=== PATIENT | male | born 1960 | race American Indian/Alaskan Native ===

== ENCOUNTER 2018-07-03 19:32 | Observation (INO) | payer BC ==
[2018-07-03] MEDS ORDERED: Sodium Chloride 0.9% 1,000 ML IV STA (20:07)
--- NOTE | 2018-07-03 20:13 | ED PDOC ---
Syncope/Near Syncope/Dizziness Time Seen by Provider: 07/03/18 19:56 Chief Complaint (Nursing): Syncope Chief Complaint (Provider): Syncope History Per: Patient History/Exam Limitations: no limitations Onset/Duration Of Symptoms: Hrs Number Of Syncopal Episodes: 1 Activity At Onset Of Symptoms: Standing Fall Associated With With Symptoms: Yes Additional Complaint(s): 57 y/o male presents to the ED after syncopal episode prior to arrival. Patient states he was watching football and when he bent over he felt a spasm-like feeling in the back of his neck. Afterwards, he stood up and immediately felt very light headed and fell to the floor. Patient states that the next thing he knew he was on the floor. He was alone when he fell and afterwards felt a little unbalance was able to walk and ultimately call his ex- to bring him to ED. Patient reports that he knocked out his false teeth as well as 1 real tooth. S janet the incident he has been feeling numbness to his arms and shoulders bilaterally. He also reports soreness to his left knee, arms, and shoulder. Patient denies headache as well as taking any medications or other medical complaints. Patient states he drinks alcohol but denies having any today. Past Medical History Reviewed: Historical Data, Nursing Documentation, Vital Signs Vital Signs: Last Vital Signs Temp 98.8 F 07/03/18 19:42 Pulse 94 H 07/03/18 19:42 Resp 18 07/03/18 19:42 BP 184/78 H 07/03/18 19:42 Pulse Ox 99 07/03/18 19:42 - Medical History PMH: Sleep Apnea - Surgical History Surgical History: No Surg Hx - Family History Family History: States: Unknown Family Hx - Social History Current smoker - smoking cessation education provided: Yes Alcohol: Social - Allergies Allergies/Adverse Reactions: Allergies Allergy/AdvReac Type Severity Reaction Status Date / Time No Known Allergies Allergy Verified 07/03/18 19:42 Review of Systems ROS Statement: Except As Marked, All Systems Reviewed And Found Negative Musculoskeletal: Positive for: Shoulder Pain, Arm Pain Neurological: Positive for: Numbness, Dizziness, Other (Syncope). Negative for: Weakness, Headache Physical Exam - Reviewed Nursing Documentation Reviewed: Yes - Physical Exam Appears: Positive for: Well, Non-toxic, No Acute Distress Head Exam: Positive for: ATRAUMATIC, NORMAL INSPECTION, NORMOCEPHALIC Skin: Positive for: Normal Color, Warm, DRY Eye Exam: Positive for: EOMI, Normal appearance, PERRL ENT: Positive for: Other (Avulsed tooth #9) Neck: Positive for: Normal, Painless ROM Cardiovascular/Chest: Positive for: Tachycardia, Irregularly Irregular Respiratory: Positive for: CNT, Normal Breath Sounds Gastrointestinal/Abdominal: Positive for: Normal Exam, Soft Back: Positive for: Normal Inspection Extremity: Positive for: Normal ROM Neurologic/Psych: Positive for: Alert, Oriented, Other (Stroke scale 0). Negative for: Motor/Sensory Deficits - Laboratory Results Result Diagrams: 07/03/18 20:10 07/03/18 20:10 - ECG ECG Rhythm: Positive for: Normal ST Segment, Atrial Fibrillation, Ventricular Tachycardia (RVR). Negative for: ST/T Changes Interpretation Of ECG: AFib at 122 bpm with RVR and no ST/T changes Rate: 122 O2 Sat by Pulse Oximetry: 99 (RA) Medical Decision Making Medical Decision Making: Time: 20:05 Initial Impression: syncope, new onset RVR Initial Plan: * CT Head * EKG * CMP * TSH * Troponin * CBC w/ diff * PTT * Prothrombin * CXR * IV Fluids * UA CT Head 21:10 FINDINGS: BRAIN No acute intraparenchymal hemorrhage. No mass lesion. No CT evidence for acute territorial infarct. No midline shift or extra-axial collections. VENTRICLES: No hydrocephalus. ORBITS: The orbits are unremarkable. SINUSES AND MASTOIDS: bilateral ethmoid sinusitis. Wax is present in the left external auditory canal. The paranasal sinuses and mastoid air cells are clear. BONES: No fracture. SOFT TISSUES: Unremarkable. IMPRESSION: No acute intracranial abnormality. 22:00 Patient care endorsed to Dr. Rivera pending PE studies. Scribe Attestation: Documented by Jordan Hill acting as a scribe for Cecy Pate MD. Provider Scribe Attestation: All medical record entries made by the Scribe were at my direction and personally dictated by me. I have reviewed the chart and agree that the record accurately reflects my personal performance of the history, physical exam, medical decision making, and the department course for this patient. I have also personally directed, reviewed, and agree with the discharge instructions and dis position. Disposition - Disposition Forms: [employer] (Persian)
[2018-07-03 20:58] LABS: BASO # 0.1 K/uL (0.0-0.2); BASO % 0.5 % (0.0-2.0); EOS # 0.3 K/uL (0.0-0.7); EOS % 2.7 % (0.0-4.0); LYMPH # 2.5 K/uL (1.0-4.3); LYMPH % 24.1 % (20.0-40.0); MEAN CELL VOLUME 85.3 fl (80.0-94.0); MEAN CORPUSCULAR HEMOGLOBIN 28.3 pg (27.0-31.0); MEAN CORPUSCULAR HGB CONC 33.1 g/dL (33.0-37.0); MEAN PLATELET VOLUME 8.3 fl (7.2-11.7); MONO % 9.2 % (0.0-10.0); NEUT # 6.6 K/uL (1.8-7.0); NEUT % 63.5 % (50.0-75.0); RBC 5.65 Mil/uL (4.40-5.90); RED CELL DISTRIBUTION WIDTH 15.1 % (11.5-14.5); WHITE BLOOD COUNT 10.4 K/uL (4.8-10.8)
[2018-07-03 21:21] LABS: URINE BILIRUBIN NEGATIVE (NEGATIVE); URINE BLOOD SMALL (NEGATIVE); URINE CLARITY CLEAR (Clear); URINE COLOR YELLOW (YELLOW); URINE GLUCOSE (UA) NEG (NEGATIVE); URINE LEUKOCYTE ESTERASE NEG Leu/uL (Negative); URINE PROTEIN 30 mg/dL (NEGATIVE); URINE UROBILINOGEN 0.2-1.0 mg/dL (0.2-1.0)
[2018-07-03 21:23] LABS: ALB/GLOB RATIO 1.3 (1.0-2.1); ALBUMIN 4.3 g/dL (3.5-5.0); ALT/SGPT 42 U/L (21-72); AST/SGOT 43 U/L (17-59); BLOOD UREA NITROGEN 17 mg/dl (9-20); CALCIUM 9.2 mg/dL (8.4-10.2); GFR NON-AFRICAN AMERICAN > 60
[2018-07-03 21:24] LABS: INR 0.9; PROTHROMBIN TIME 10.6 Seconds (9.8-13.1)
[2018-07-03 21:27] LABS: PARTIAL THROMBOPLASTIN TIME 31.1 Seconds (25.6-37.1)
[2018-07-03] MEDS ORDERED: Iodixanol 320 MG/ML 100 ML BOTTLE IV ONE (22:13)
[2018-07-03] MEDS ORDERED: Sodium Chloride 0.9% 50 ML IV ONE (22:13)
--- NOTE | 2018-07-03 23:00 | ED PDOC ---
- Laboratory Results Result Diagrams: 07/04/18 04:25 07/04/18 04:25 Lab Results: PT 10.6 Seconds (9.8-13.1) 07/03/18 20:10 INR 0.9 07/03/18 20:10 APTT 31.1 Seconds (25.6-37.1) 07/03/18 20:10 D-Dimer, Quantitative 585 ng/mlDDU (0-230) H 07/03/18 21:29 Troponin I < 0.0120 ng/mL (0.00-0.120) 07/03/18 20:10 Total Bilirubin 0.5 mg/dl (0.2-1.3) 07/03/18 20:10 AST 43 U/L (17-59) 07/03/18 20:10 ALT 42 U/L (21-72) 07/03/18 20:10 Alkaline Phosphatase 106 U/L (38-126) 07/03/18 20:10 Total Protein 7.6 G/DL (6.3-8.2) 07/03/18 20:10 Albumin 4.3 g/dL (3.5-5.0) 07/03/18 20:10 Globulin 3.3 gm/dL (2.2-3.9) 07/03/18 20:10 Albumin/Globulin Ratio 1.3 (1.0-2.1) 07/03/18 20:10 Urine Color Yellow (YELLOW) 07/03/18 20:10 Urine Clarity Clear (Clear) 07/03/18 20:10 Urine pH 6.0 (5.0-8.0) 07/03/18 20:10 Ur Specific [place] 1.013 (1.003-1.030) 07/03/18 20:10 Urine Protein 30 mg/dL (NEGATIVE) 07/03/18 20:10 Urine Glucose (UA) Neg mg/dL (NEGATIVE) 07/03/18 20:10 Urine Ketones Negative mg/dL (NEGATIVE) 07/03/18 20:10 Urine Blood Small (NEGATIVE) 07/03/18 20:10 Urine Nitrate Negative (NEGATIVE) 07/03/18 20:10 Urine Bilirubin Negative (NEGATIVE) 07/03/18 20:10 Urine Urobilinogen 0.2-1.0 mg/dL (0.2-1.0) 07/03/18 20:10 Ur Leukocyte Esterase Neg Thad/uL (Negative) 07/03/18 20:10 Urine RBC (Auto) 9 /hpf (0-3) H 07/03/18 20:10 Urine Microscopic WBC 1 /hpf (0-5) 07/03/18 20:10 - ECG O2 Sat by Pulse Oximetry: 97 (RA) Pulse Ox Interpretation: Normal Medical Decision Making Medical Decision Making: Time: 22:00 Patient care endorsed from Dr. Pate to provider pending PE studies. 23:09 FINDINGS: PULMONARY ARTERIES No evidence of central or segmental pulmonary embolism is seen. AORTA There is no evidence for aneurysm or dissection of the thoracic aorta. LUNGS The lungs appear clear. PLEURAL SPACES No evidence of pneumothorax. No pleural effusion. HEART Normal heart size. No significant pericardial effusion. LYMPH NODES No lymphadenopathy is evident. BONES No focal osseous abnormality or acute fracture. UPPER ABDOMEN Images of the upper abdomen are unremarkable. IMPRESSION: Unremarkable pulmonary embolism protocol CTA of the chest. 00:12 Spoke to hospitalist, Dr. Starkey who accepted patient for admission. Diagnoses are syncope and atrial fibrillation. Scribe Attestation: Documented by Jordan Hill acting as a scribe for Arnel Rivera MD. Provider Scribe Attestation: All medical record entries made by the Scribe were at my direction and pers onally dictated by me. I have reviewed the chart and agree that the record accurately reflects my personal performance of the history, physical exam, medical decision making, and the department course for this patient. I have also personally directed, reviewed, and agree with the discharge instructions and disposition. Disposition - Clinical Impression Clinical Impression: Syncope - POA Present On Arrival: None - Disposition Disposition: Admitted as In-Patient Disposition Time: 00:14 Condition: STABLE
--- NOTE | 2018-07-04 01:08 | CP.PCM.HP ---
<Sukumar Foreman - Last Filed: 07/04/18 01:54> History of Present Illness - History of Present Illness History of Present Illness: 57 y/o M with a PMHx of SEB presented to ED due to syncopal episode. Pt explains he was at the kitchen, fixing his lunch for work, when he felt soreness on his posterior neck and dizzy (lightheaded), then passed out, fell forward, hitting and damaging his upper lip, and displacing his frontal upper teeth. Pt reports LOC for <1min, he was able to stand up with a little balance difficulty and check the football game on TV and the match time only progressed 1 minute. Pt lives alone and had to call ex- for help. No recent illness. No similar episodes. At this moment, pt complains of neck and bilateral arms soreness that improved after PO Tylenol. Pt denies headache, fever, chills, nasal congestion, runny nose, sore throat, cough, chest pain, SOB, palpitations, nausea, vomiting, abdominal pain, diarrhea, [id number], bitten tongue, loss of bladder control or generalized weakness. No recent meds use, no alcohol intake in the last 8 days. PCP: Dr Beasley. (Pt has not seen PCP in over a year) NKDA Medications: None -PMHx: Obstructive Sleep Apnea, uses CPAP to sleep. -PSHx: denied -FHx: Father due to prostate cancer at older age. Mother is healthy. -SHx: Tobacco for >40 years,1 pack last fro 3-4 days. Alcohol occasional, 1-2x per month. No rec drug use. Lives alone. At ED: --Vital signs remarkable for elevated HR. --EKG with A-Fib with RVR. --CBC, CMP and coag profile were unremarkable. --D-dimer 585-elevated. --Serum troponin and TSH were WNL --CT Angio of chest: unremarkable PE protocol. --Head CT: no acute intra-cranial abnormality. --Unremarkable CXR, read by me. --IV NSS bolus, IV Cardiazem and PO Tylenol were administered. Present on Admission - Present on Admission Any Indicators Present on Admission: No History of DVT/PE: No History of Uncontrolled Diabetes: No Urinary Catheter: No Review of Systems - Constitutional Constitutional: absent: Chills, Fever, Night Sweats - EENT Eyes: absent: Change in Vision Nose/Mouth/Throat: Lip Swelling, Mouth Lesions. absent: Epistaxis, Nasal Congestion - Cardiovascular Cardiovascular: absent: Chest Pain, Dyspnea, Orthopnea, Palpitations - Respiratory Respiratory: absent: Cough, Dyspnea, Hemoptysis, Wheezing - Gastrointestinal Gastrointestinal: absent: Abdominal Pain, Belching, Hematochezia, Nausea, Vomiting Past Patient History - Past Social History Alcohol: Social - PULMONARY Hx Sleep Apnea: Yes - PSYCHIATRIC Hx Substance Use: No - SURGICAL HISTORY Hx Musculoskeletal Surgery: Yes Meds Allergies/Adverse Reactions: Allergies Allergy/AdvReac Type Severity Reaction Status Date / Time No Known Allergies Allergy Verified 07/03/18 19:42 Physical Exam - Constitutional Appears: Well, No Acute Distress - Head Exam Head Exam: NORMAL INSPECTION - Eye Exam Eye Exam: EOMI, Normal appearance - ENT Exam ENT Exam: Mucous Membranes Moist Additional comments: Swollen upper lip, erythematous frontal upper gingica with traces of bleeding. No active bleeding. - Neck Exam Neck exam: Positive for: Full Rom, Normal Inspection. Negative for: Lymphadenopathy, Meningismus, Tenderness - Respiratory Exam Respiratory Exam: NORMAL BREATHING PATTERN. absent: Accessory Muscle Use, Chest Wall Tenderness, Wheezes - Cardiovascular Exam Cardiovascular Exam: Tachycardia, Irregular Rhythm, +S1, +S2 - GI/Abdominal Exam GI & Abdominal Exam: Soft. absent: Distended, Rebound, Rigid, Tenderness - Extremities Exam Extremities exam: Positive for: full ROM. Negative for: calf tenderness, joint swelling, pedal edema, tenderness - Neurological Exam Neurological exam: Alert, Oriented x3 - Psychiatric Exam Psychiatric exam: Normal Affect, Normal Mood Results - Vital Signs Recent Vital Signs: Last Vital Signs Temp 98.8 F 07/03/18 19:42 Pulse 93 H 07/04/18 00:29 Resp 18 07/04/18 00:29 BP 148/93 H 07/04/18 00:29 Pulse Ox 97 07/04/18 00:29 - Labs Result Diagrams: 07/03/18 20:10 07/03/18 20:10 Labs: Laboratory Results - last 24 hr 07/03/18 07/03/18 07/03/18 20:10 20:10 20:10 WBC 10.4 RBC 5.65 Hgb 16.0 Hct 48.2 MCV 85.3 MCH 28.3 MCHC 33.1 RDW 15.1 H Plt Count 226 MPV 8.3 Neut % (Auto) 63.5 Lymph % (Auto) 24.1 [place] % (Auto) 9.2 Eos % (Auto) 2.7 Baso % (Auto) 0.5 Neut # (Auto) 6.6 Lymph # (Auto) 2.5 [place] # (Auto) 1.0 H Eos # (Auto) 0.3 Baso # (Auto) 0.1 PT 10.6 INR 0.9 APTT 31.1 D-Dimer, Quantitative Sodium 136 Potassium 4.1 Chloride 101 Carbon Dioxide 25 Anion Gap 14 BUN 17 Creatinine 1.1 Est GFR ( Amer) > 60 Est GFR (Non-Af Amer) > 60 Random Glucose 105 Calcium 9.2 Total Bilirubin 0.5 AST 43 ALT 42 Alkaline Phosphatase 106 Troponin I < 0.0120 Total Protein 7.6 Albumin 4.3 Globulin 3.3 Albumin/Globulin Ratio 1.3 TSH 3rd Generation 1.95 Urine Color Urine Clarity Urine pH Ur Specific [place] Urine Protein Urine Glucose (UA) Urine Ketones Urine Blood Urine Nitrate Urine Bilirubin Urine Urobilinogen Ur Leukocyte Esterase Urine RBC (Auto) Urine Microscopic WBC 07/03/18 07/03/18 20:10 21:29 WBC RBC Hgb Hct MCV MCH MCHC RDW Plt Count MPV Neut % (Auto) Lymph % (Auto) [place] % (Auto) Eos % (Auto) Baso % (Auto) Neut # (Auto) Lymph # (Auto) [place] # (Auto) Eos # (Auto) Baso # (Auto) PT INR APTT D-Dimer, Quantitative 585 H Sodium Potassium Chloride Carbon Dioxide Anion Gap BUN Creatinine Est GFR ( Amer) Est GFR (Non-Af Amer) Random Glucose Calcium Total Bilirubin AST ALT Alkaline Phosphatase Troponin I Total Protein Albumin Globulin Albumin/Globulin Ratio TSH 3rd Generation Urine Color Yellow Urine Clarity Clear Urine pH 6.0 Ur Specific [place] 1.013 Urine Protein 30 Urine Glucose (UA) Neg Urine Ketones Negative Urine Blood Small Urine Nitrate Negative Urine Bilirubin Negative Urine Urobilinogen 0.2-1.0 Ur Leukocyte Esterase Neg Urine RBC (Auto) 9 H Urine Microscopic WBC 1 Assessment & Plan - Assessment and Plan (Free Text) Assessment: 57 y/o M with a PMHx of SEB was admitted for evaluation and management of syncopal episode and new onset of Atrial Fibrillation. --CT Angio of chest: unremarkable PE protocol. --Head CT: no acute intra-cranial abnormality. --TSH wnl, No anemia on CBC, no electrolyte imbalance. PLAN: >Syncope --New, tachycardic. --Likely cardiogenic due to A-Fib --Cardiology consult, Dr Crawford. --Repeat serum troponin --Echocardiogram ordered --Prolactin and CPK for eval of possible seizure. --Orthostatic BP ordered. --F/U AM labs: CBC, CMP, lipid panel, HbA1c, prolactin and CPK. >New Onset Atrial Fibrillation --S/P Cardiazem at ED --Continous cardiac monitoring --Repeat EKG in the morning. --Echocardiogram ordered --Cardiology consult, Dr Crawford. --CHA2DS?2-VASc Score: 0 --Aspirin 81mg PO daily. --Heart Healthy Diet, decaf. >Upper lip pain/gingival pain/Bilateral upper arm sore pain --S/P fall and syncope --Pain management: Acetaminophen and Ibuprofen. --F/U symptoms: Considering CT cervical spine. --Will need dentist evaluation as outpatient. >Obstructive Sleep Apnea --Pt may use his own CPAP >DVT Prophylaxis --SCD's --Lovenox 40mg SC Case discussed with Dr Starkey, hospitalist. GTolentino PGY-2 - Date & Time Date: 07/04/18 Time: 01:45 <Olvin Starkey - Last Filed: 07/04/18 05:06> Results - Vital Signs Recent Vital Signs: Last Vital Signs Temp 98 F 07/04/18 02:02 Pulse 95 H 07/04/18 02:02 Resp 18 07/04/18 02:02 BP 155/83 H 07/04/18 02:02 Pulse Ox 97 07/04/18 02:02 - Labs Result Diagrams: 07/03/18 20:10 07/03/18 20:10 Labs: Laboratory Results - last 24 hr 07/03/18 07/03/18 07/03/18 20:10 20:10 20:10 WBC 10.4 RBC 5.65 Hgb 16.0 Hct 48.2 MCV 85.3 MCH 28.3 MCHC 33.1 RDW 15.1 H Plt Count 226 MPV 8.3 Neut % (Auto) 63.5 Lymph % (Auto) 24.1 [place] % (Auto) 9.2 Eos % (Auto) 2.7 Baso % (Auto) 0.5 Neut # (Auto) 6.6 Lymph # (Auto) 2.5 [place] # (Auto) 1.0 H Eos # (Auto) 0.3 Baso # (Auto) 0.1 PT 10.6 INR 0.9 APTT 31.1 D-Dimer, Quantitative Sodium 136 Potassium 4.1 Chloride 101 Carbon Dioxide 25 Anion Gap 14 BUN 17 Creatinine 1.1 Est GFR ( Amer) > 60 Est GFR (Non-Af Amer) > 60 Random Glucose 105 Calcium 9.2 Total Bilirubin 0.5 AST 43 ALT 42 Alkaline Phosphatase 106 Troponin I < 0.0120 Total Protein 7.6 Albumin 4.3 Globulin 3.3 Albumin/Globulin Ratio 1.3 TSH 3rd Generation 1.95 Urine Color Urine Clarity Urine pH Ur Specific [place] Urine Protein Urine Glucose (UA) Urine Ketones Urine Blood Urine Nitrate Urine Bilirubin Urine Urobilinogen Ur Leukocyte Esterase Urine RBC (Auto) Urine Microscopic WBC 07/03/18 07/03/18 07/04/18 20:10 21:29 02:20 WBC RBC Hgb Hct MCV MCH MCHC RDW Plt Count MPV Neut % (Auto) Lymph % (Auto) [place] % (Auto) Eos % (Auto) Baso % (Auto) Neut # (Auto) Lymph # (Auto) [place] # (Auto) Eos # (Auto) Baso # (Auto) PT INR APTT D-Dimer, Quantitative 585 H Sodium Potassium Chloride Carbon Dioxide Anion Gap BUN Creatinine Est GFR ( Amer) Est GFR (Non-Af Amer) Random Glucose Calcium Total Bilirubin AST ALT Alkaline Phosphatase Troponin I < 0.0120 Total Protein Albumin Globulin Albumin/Globulin Ratio TSH 3rd Generation Urine Color Yellow Urine Clarity Clear Urine pH 6.0 Ur Specific [place] 1.013 Urine Protein 30 Urine Glucose (UA) Neg Urine Ketones Negative Urine Blood Small Urine Nitrate Negative Urine Bilirubin Negative Urine Urobilinogen 0.2-1.0 Ur Leukocyte Esterase Neg Urine RBC (Auto) 9 H Urine Microscopic WBC 1 Attending/Attestation - Attestation I have personally seen and examined this patient.: Yes I have fully participated in the care of the patient.: Yes I have reviewed all pertinent clinical information: Yes Notes (Text): 07/04/18 04:52 I saw, examined and discussed this patient with . I agree with the Assessment and plan outlined above. We will follow serial Troponin, EKG and ECHO for wall motion, Prolactin, CPK to r/o Rhabdomyolisis. Cardiac monitoring for the A Fib and the Syncope. Neuro david cks. No Cervical Spine CT scan at present as the patient has no neck pain nor discomfort at this time. Consult Cardiology. Cardizem Oral for Rate control of New unset A Fib. Aspirin as the [id number] is 0. - Follow elevated Blood pressure Olvin Starkey MD
[2018-07-04 05:47] LABS: BASO # 0.1 K/uL (0.0-0.2); BASO % 0.8 % (0.0-2.0); EOS # 0.3 K/uL (0.0-0.7); EOS % 2.7 % (0.0-4.0); HEMOGLOBIN 15.4 g/dL (12.0-18.0); LYMPH % 26.4 % (20.0-40.0); MEAN CELL VOLUME 86.6 fl (80.0-94.0); MEAN CORPUSCULAR HGB CONC 32.4 g/dL (33.0-37.0); MEAN PLATELET VOLUME 8.3 fl (7.2-11.7); MONO # 1.1 K/uL (0.0-0.8); MONO % 9.6 % (0.0-10.0); NEUT # 6.8 K/uL (1.8-7.0); NEUT % 60.5 % (50.0-75.0); NRBC % 0.2 % (0.0-0.0); RBC 5.51 Mil/uL (4.40-5.90); RED CELL DISTRIBUTION WIDTH 14.9 % (11.5-14.5); WHITE BLOOD COUNT 11.3 K/uL (4.8-10.8)
[2018-07-04 06:02] LABS: BLOOD UREA NITROGEN 13 mg/dl (9-20); CALCIUM 8.7 mg/dL (8.4-10.2); GFR NON-AFRICAN AMERICAN > 60; HDL CHOLESTEROL 59 MG/DL (30-70); LDL CHOLESTEROL 115 mg/dL (0-129)
--- NOTE | 2018-07-04 08:43 | CT ---
Date of service: 07/03/2018 PROCEDURE: CT HEAD WITHOUT CONTRAST. HISTORY: Vertigo COMPARISON: None available. TECHNIQUE: Axial computed tomography images were obtained through the head/brain without intravenous contrast. Radiation dose: Total exam DLP = 731.55 mGy-cm. This CT exam was performed using one or more of the following dose reduction techniques: Automated exposure control, adjustment of the mA and/or kV according to patient size, and/or use of iterative reconstruction technique. FINDINGS: HEMORRHAGE: No intracranial hemorrhage. BRAIN: No mass effect or edema. No atrophy or chronic microvascular ischemic changes. VENTRICLES: Unremarkable. No hydrocephalus. CALVARIUM: Unremarkable. PARANASAL SINUSES: Unremarkable as visualized. No significant inflammatory changes. MASTOID AIR CELLS: Unremarkable as visualized. No inflammatory changes. OTHER FINDINGS: None. IMPRESSION: No evidence of acute intracranial hemorrhage mass effect or midline shift . Preliminary report contains concordant findings was submitted by [facility].
[2018-07-04] MEDS ORDERED: Enoxaparin 40 mg Syringe SC SCH (09:00)
--- NOTE | 2018-07-04 10:04 | CT ---
Date of service: 07/03/2018 PROCEDURE: CT Chest with contrast (Pulmonary Angiogram) HISTORY: Syncope COMPARISON: None available. TECHNIQUE: Axial computed tomography images were obtained of the chest in the pulmonary arterial phase of enhancement. Coronal and sagittal reformatted images were created and reviewed. Intravenous contrast dose: 70 mL of Visipaque 320 intravenously Radiation dose: Total exam DLP = 369.32 mGy-cm. This CT exam was performed using one or more of the following dose reduction techniques: Automated exposure control, adjustment of the mA and/or kV according to patient size, and/or use of iterative reconstruction technique. FINDINGS: PULMONARY ARTERIES: No evidence of filling defect to suggest acute pulmonary embolus. No pulmonary embolism. AORTA: No acute findings. No thoracic aortic aneurysm. No aortic atherosclerotic calcification or mural plaque present. LUNGS: Unremarkable. No nodule, mass or pulmonary consolidation. PLEURAL SPACES: Unremarkable. No effusion or pneumothorax. HEART: Unremarkable. No cardiomegaly. No significant pericardial effusion. LYMPH NODES: No lymphadenopathy. BONES, CHEST WALL: Unremarkable. No fracture or destructive lesion OTHER FINDINGS: Unremarkable. IMPRESSION: No CTA evidence of acute pulmonary embolus. No evidence of acute pulmonary disease. Preliminary report contains concordant findings was submitted by [facility].
--- NOTE | 2018-07-04 10:06 | CARD ---
APPROVED REPORT Date of service: 07/03/2018 EKG Measurement Heart [id number] <Conclusion> Atrial fibrillation with rapid ventricular response Abnormal ECG
[2018-07-04 12:29] LABS: PROLACTIN 16.2 ng/mL (3.7-17.9)
--- NOTE | 2018-07-04 12:36 | CARD ---
APPROVED REPORT Date of service: 07/04/2018 EKG Measurement Heart [id number] <Conclusion> Atrial fibrillation with rapid ventricular response Left axis deviation Possible Septal infarct, age undetermined Abnormal ECG
--- NOTE | 2018-07-04 12:53 | CARD ---
APPROVED REPORT Date of service: 07/04/2018 EXAM: Two-dimensional and M-mode echocardiogram with Doppler and color Doppler. Other Information Quality : GoodRhythm : Atrial Fibrillation INDICATION Atrial Fibrillation Syncope 2D DIMENSIONS IVSd1.25 (0.7-1.1cm)LVDd3.99 (3.9-5.9cm) PWd1.54 (0.7-1.1cm)IVSs1.08 (0.8-1.2cm) LVDs3.48 (2.5-4.0cm)FS (%) 12.8 % PWs1.68 (0.8-1.2cm) M-Mode DIMENSIONS Left Atrium (MM)3.12 (2.5-4.0cm)IVSd1.19 (0.7-1.1cm) Aortic Root2.87 (2.2-3.7cm)LVDd4.44 (4.0-5.6cm) Aortic Cusp Exc.1.96 (1.5-2.0cm)PWd1.27 (0.7-1.1cm) IVSs1.99 cmFS (%) 44 % LVDs2.48 (2.0-3.8cm)PWs1.63 cm Aortic Valve LVOT Peak Zash[place]up51.3cm/sLVOT VTI11.30cm Mitral Valve E/A ratio0.0 TDI E/Lateral E'0.0E/Medial E'0.0 LEFT VENTRICLE The left ventricle is normal size. There is mild concentric left ventricular hypertrophy. The left ventricular systolic function is normal. The estimated ejection fraction is 60-65% No regional wall motion abnormalities noted.. The left ventricular diastolic function cannot be assessed due to underlying atrial fibrillation. No left ventricle thrombus noted on this study. There is no ventricular septal defect visualized. There is no left ventricular aneurysm. There is no mass noted in the left ventricle. RIGHT VENTRICLE The right ventricle is normal size. There is normal right ventricular wall thickness. The right ventricular systolic function is normal. ATRIA The left atrium size is normal. The right atrium size is normal. The interatrial septum is intact with no evidence for an atrial septal defect. AORTIC VALVE The aortic valve is normal in structure. No aortic regurgitation is present. There is no aortic valvular stenosis. There is no aortic valvular vegetation. MITRAL VALVE The mitral valve is normal in structure. There is no evidence of mitral valve prolapse. There is no mitral valve stenosis. There is no mitral valve regurgitation noted. TRICUSPID VALVE The tricuspid valve is normal in structure. There is no tricuspid valve regurgitation noted. There is no tricuspid valve prolapse or vegetation. There is no tricuspid valve stenosis. PULMONIC VALVE The pulmonary valve is normal in structure. There is no pulmonic valvular regurgitation. There is no pulmonic valvular stenosis. GREAT VESSELS The aortic root is normal in size. The ascending aorta is normal in size. The pulmonary artery is normal. The IVC is normal in size and collapses >50% with inspiration. PERICARDIAL EFFUSION There is no pericardial effusion. There is no pleural effusion. <Conclusion> There is mild concentric left ventricular hypertrophy. The estimated ejection fraction is 60-65% The left ventricular diastolic function cannot be assessed due to underlying atrial fibrillation. The left atrium size is normal. There is no tricuspid valve regurgitation noted.
--- NOTE | 2018-07-04 12:57 | RAD ---
Date of service: 07/03/2018 HISTORY: Syncope COMPARISON: No prior. FINDINGS: LUNGS: No active pulmonary disease. PLEURA: No significant pleural effusion identified, no pneumothorax apparent. CARDIOVASCULAR: No atherosclerotic calcification present Normal. OSSEOUS STRUCTURES: No significant abnormalities. VISUALIZED UPPER ABDOMEN: Normal. OTHER FINDINGS: None. IMPRESSION: No active disease.
[2018-07-04] MEDS: Enoxaparin 80 mg Syringe SC SCH ×2 (12:58→21:12)
[2018-07-04 16:34] LABS: BARBITURATES, UR NEGATIVE (NEGATIVE); BENZODIAZEPINES, UR NEGATIVE (NEGATIVE); OPIATES, UR NEGATIVE (NEGATIVE); PHENCYCLIDINE, UR NEGATIVE (NEGATIVE)
--- NOTE | 2018-07-04 17:11 | US ---
Date of service: 07/04/2018 PROCEDURE: Duplex ultrasound of the carotid and vertebral arteries. HISTORY: syncope, rule out carotid artery stenosis COMPARISON: None available. TECHNIQUE: Grayscale and duplex Doppler evaluation of the cervical carotid and vertebral arteries were performed. The common carotid, carotid bifurcations and cervical ICA and proximal ECA were evaluated. The vertebral arteries were evaluated for gross patency and direction. FINDINGS: RIGHT CAROTID ARTERIES: Common Carotid Artery: Maximal flow velocity of 91.2 cm/s. Carotid Bifurcation: Intimal thickening is present Internal Carotid Artery:Heterogeneous plaque formation. Maximal flow velocity of 66.1 cm/s. External Carotid Artery (proximal branches): Maximal flow velocity of 91.4 cm/s. ICA/CCA Ratio: 1.2 LEFT CAROTID ARTERIES: Common Carotid Artery: Maximal flow velocity of 96.8 cm/s. Carotid Bifurcation: Intimal thickening is present Internal Carotid Artery:Heterogeneous plaque formation. Maximal flow velocity of 80.6 cm/s. External Carotid Artery (proximal branches): Maximal flow velocity of 83.8 cm/s. ICA/CCA Ratio: 1.2 VERTEBRAL ARTERIES: Right Vertebral Artery: Patent. Antegrade flow. Left Vertebral Artery: Patent. Antegrade flow. OTHER FINDINGS: Atherosclerotic calcification present. IMPRESSION: Right ICA degree of stenosis: Less than 50% Left ICA degree of stenosis: Less than 50% Reference Internal Carotid Artery (ICA) Peak Systolic Velocity (PSV) for above: 1. Less than 50% stenosis less than 125 cm/s peak systolic velocity 2. 50-69% stenosis 125-230cm/s peak systolic velocity 3. Greater than 70% but less than near occlusion greater than 230 cm/s peak systolic velocity
[2018-07-04] MEDS ORDERED: Gadodiamide 287 MG/ML VIAL (15ML) IV ONE (18:02)
--- NOTE | 2018-07-05 01:01 | CON ---
DATE: 07/04/2018 CARDIOLOGY CONSULTATION REASON FOR CONSULTATION: New-onset atrial fibrillation as well as a syncopal episode. HISTORY OF PRESENT ILLNESS: The patient is a 57-year-old male who has known prior cardiac history, presented because of a fall. The patient stated that as he was watching a football game, and he was bending down to sweep the floor as he stood up, he collapsed on his face and broke four of his front teeth in the upper jaw. The patient did not realize what happened until he woke up on the floor with blood smearing him on the floor. The patient from the game watching timer was able to tell that he was down for a brief time probably a few minutes. The patient denies any urinary incontinence. The patient has no warning sign before his fall. Denies any history of palpitation. The patient works as substance abuse clinician. Denies any history of accidents in the past. SOCIAL HISTORY: The patient is a smoker. . He lives by himself. MEDICATIONS: Cardizem 30 mg p.o. every 6 hours, aspirin 81 mg once a day, therapeutic subcutaneous Lovenox at 80 mg twice a day. REVIEW OF SYSTEMS: No headache, blurry vision, or dizziness as a sign. The patient does not report any palpitation. PHYSICAL EXAMINATION: GENERAL: The patient is a middle-aged male who does not appear to be in any distress. VITAL SIGNS: Blood pressure 132/77, heart rate 78, temperature 98.3, respirations 18. HEENT: The patient is currently undergoing EEG, and his head is wrapped with a bandage over the electrodes. He has loss of the four upper jaw incisors. NECK: No JVD. CHEST: Clear. HEART: S1 and S2 are regular. ABDOMEN: Soft. EXTREMITIES: No edema. LABORATORY DATA: Today's hemoglobin and hematocrit 15.4 and 47.7, white count 11.3, platelet count 224,000. Today's SMA-7: Sodium 133, potassium 4.2, chloride 102, CO2 of 23, glucose 110, BUN 16, creatinine 1. Two sets of troponins are negative. Lipid profile is within normal limits. TSH level is within normal limits. D-dimer is 585. PT, PTT, and INR are within normal limits. Head CT scan without contrast revealed no evidence of acute intracranial hemorrhage to midline shift. Chest x-ray was unremarkable. EKG on admission revealed atrial fibrillation with rapid ventricular response at rate 122. Today's EKG revealed atrial fibrillation with ventricular response at rate 106, left axis deviation, possible septal infarct. Chest CT angio, no CT evidence of acute pulmonary embolus. Echocardiographic study revealed normal ejection fraction, mild concentric LVH. ASSESSMENT: 1. Syncopal episode versus seizures. 2. Atrial fibrillation, most likely new onset. 3. Systolic hypertension. RECOMMENDATIONS: Continue Cardizem 30 mg p.o. every 8 hours, aspirin 81 mg once a day, therapeutic subcutaneous Lovenox at 80 mg twice a day. I will follow up EEG. Obtain EP consult. Marvin Crawford MD
[2018-07-05] MEDS ORDERED: Iodixanol 320 MG/ML 100 ML BOTTLE IV ONE (10:25)
[2018-07-05] MEDS ORDERED: Sodium Chloride 0.9% 50 ML IV ONE (10:25)
[2018-07-05] MEDS: Enoxaparin 80 mg Syringe SC SCH (12:00)
--- NOTE | 2018-07-05 12:50 | MRI ---
Date of service: 07/04/2018 PROCEDURE: MRI BRAIN WITH AND WITHOUT CONTRAST HISTORY: syncopy COMPARISON: None available. TECHNIQUE: Multiplanar, multisequence MR images of the brain were obtained with and without intravenous contrast enhancement. FINDINGS: HEMORRHAGE: None DWI: No evidence of an acute or early subacute infarction. BRAIN PARENCHYMA: Brain parenchyma remarkable for infrequent subcortical long TR hyperintensities identified in the frontal and parietal lobes compatible with limited chronic microangiopathy. No additional signal abnormalities appreciate above or below the tentorium including throughout the brainstem. There is no mass effect. Midline brain anatomy is unremarkable and there is no suspicious extra-axial collection identified. ENHANCEMENT: No abnormal intracranial enhancement. VENTRICLES: Unremarkable. No hydrocephalus. CRANIUM: Unremarkable. ORBITS: Grossly unremarkable. PARANASAL SINUSES/MASTOIDS: Clear VASCULAR SYSTEM: Skull base flow voids intact. OTHER FINDINGS: None . IMPRESSION: Minimal age related neuro degenerative findings, primarily chronic microangiopathy. The remainder the examination is unremarkable. No abnormal intracranial enhancement.
[2018-07-05 16:02] VITALS: BP 146/68; PULSE 65; RESP 17; TEMP 98.1; O2SAT 98
--- NOTE | 2018-07-05 16:19 | CT ---
Date of service: 07/05/2018 PROCEDURE: CT Angiography of the Brain and Neck. HISTORY: syncopy COMPARISON: None available. TECHNIQUE: CT angiogram of the head and neck was performed following intravenous administration of iodinated contrast material captured during the arterial phase of contrast enhancement. Contrast Dose: Visipaque 320, 99 cc Radiation dose: Total exam DLP = 541.47 mGy-cm. This CT exam was performed using one or more of the following dose reduction techniques: Automated exposure control, adjustment of the mA and/or kV according to patient size, and/or use of iterative reconstruction technique. FINDINGS: INTERNAL CEREBRAL ARTERIES: Unremarkable. The skull base, petrous, cavernous and supraclinoid segments are bilaterally widely patent. ANTERIOR CEREBRAL ARTERIES: Unremarkable. A1 and A2 segments are widely patent. Smaller distal branches unremarkable, as visualized. MIDDLE CEREBRAL ARTERIES: Unremarkable. M1 and M2 segments are widely patent. Perisylvian branches grossly symmetric. POSTERIOR CIRCULATION: Basilar Artery: Unremarkable. Distal Vertebral Arteries: Left dominant vertebrobasilar circulation. Posterior Cerebral Arteries: Unremarkable. Posterior Inferior Cerebellar Arteries: Unremarkable. NECK CTA: Common Carotid arteries: The bilateral common carotid appear widely patent from their origins to their bifurcations with no significant stenosis appreciated. No evidence to suggest common carotid artery dissection. A mild amount of plaque identified at the right carotid bulb without significant stenosis resulting nevertheless. Internal Carotid arteries: No significant stenosis is appreciated throughout the cervical internal carotid artery segments bilaterally and there is no evidence of dissection either. External Carotid arteries: Appear unremarkable bilaterally. Vertebral arteries: The bilateral vertebral arteries appear normal in caliber from their origins to their distal cervical segments. No significant stenosis or definite pattern of dissection. ANEURYSM/ VASCULAR MALFORMATIONS: None. OTHER FINDINGS: None. IMPRESSION: CT angiography of the brain and neck fails demonstrate evidence of occlusion or significant stenosis without throughout the intracranial and neck major arterial anatomy. No significant stenosis appreciated related to mild plaque at the right carotid bulb.
--- NOTE | 2018-07-05 17:03 | CP.PCM.DIS ---
<Sanjay Benoit - Last Filed: 07/05/18 16:47> Provider - Provider Date of Admission: 07/04/18 00:14 Attending physician: Olvin Starkey Consults: 07/04/18 00:15 Cardiology Consult Stat Comment: Consulting Provider: Marvin Crawfrod Consulting Physician: Marvin Crawford Reason for Consult: n 07/04/18 14:10 Neurology Consult Routine Comment: Consulting Provider: Braxton Thomas Consulting Physician: Braxton Thomas Reason for Consult: r/o seizure 07/04/18 14:17 Physician Consult Routine Comment: Consulting Provider: Juan Blount Consulting Physician: Juan Blount Reason for Consult: a fib. syncope Time Spent in preparation of Discharge (in minutes): 30 Hospital Course - Lab Results Lab Results: Most Recent Lab Values WBC 11.3 K/uL (4.8-10.8) H 07/04/18 04:25 RBC 5.51 Mil/uL (4.40-5.90) 07/04/18 04:25 Hgb 15.4 g/dL (12.0-18.0) 07/04/18 04:25 Hct 47.7 % (35.0-51.0) 07/04/18 04:25 MCV 86.6 fl (80.0-94.0) 07/04/18 04:25 MCH 28.0 pg (27.0-31.0) 07/04/18 04:25 MCHC 32.4 g/dL (33.0-37.0) L 07/04/18 04:25 RDW 14.9 % (11.5-14.5) H 07/04/18 04:25 Plt Count 224 K/uL (130-400) 07/04/18 04:25 MPV 8.3 fl (7.2-11.7) 07/04/18 04:25 Neut % (Auto) 60.5 % (50.0-75.0) 07/04/18 04:25 Lymph % (Auto) 26.4 % (20.0-40.0) 07/04/18 04:25 Day % (Auto) 9.6 % (0.0-10.0) 07/04/18 04:25 Eos % (Auto) 2.7 % (0.0-4.0) 07/04/18 04:25 Baso % (Auto) 0.8 % (0.0-2.0) 07/04/18 04:25 Neut # (Auto) 6.8 K/uL (1.8-7.0) 07/04/18 04:25 Lymph # (Auto) 3.0 K/uL (1.0-4.3) 07/04/18 04:25 Day # (Auto) 1.1 K/uL (0.0-0.8) H 07/04/18 04:25 Eos # (Auto) 0.3 K/uL (0.0-0.7) 07/04/18 04:25 Baso # (Auto) 0.1 K/uL (0.0-0.2) 07/04/18 04:25 PT 10.6 Seconds (9.8-13.1) 07/03/18 20:10 INR 0.9 07/03/18 20:10 APTT 31.1 Seconds (25.6-37.1) 07/03/18 20:10 D-Dimer, Quantitative 585 ng/mlDDU (0-230) H 07/03/18 21:29 Sodium 133 mmol/l (132-148) 07/04/18 04:25 Potassium 4.2 MMOL/L (3.6-5.0) 07/04/18 04:25 Chloride 102 mmol/L (98-107) 07/04/18 04:25 Carbon Dioxide 23 mmol/L (22-30) 07/04/18 04:25 Anion Gap 12 (10-20) 07/04/18 04:25 BUN 13 mg/dl (9-20) 07/04/18 04:25 Creatinine 1.0 mg/dl (0.8-1.5) 07/04/18 04:25 Est GFR ( Amer) > 60 07/04/18 04:25 Est GFR (Non-Af Amer) > 60 07/04/18 04:25 POC Glucose (mg/dL) 108 mg/dL (65-110) 07/03/18 20:19 Random Glucose 110 mg/dL (75-110) 07/04/18 04:25 Hemoglobin A1c 5.9 % (4.2-6.5) 07/04/18 04:25 Calcium 8.7 mg/dL (8.4-10.2) 07/04/18 04:25 Total Bilirubin 0.5 mg/dl (0.2-1.3) 07/03/18 20:10 AST 43 U/L (17-59) 07/03/18 20:10 ALT 42 U/L (21-72) 07/03/18 20:10 Alkaline Phosphatase 106 U/L (38-126) 07/03/18 20:10 Total Creatine Kinase 710 U/L (55-170) H 07/04/18 04:25 Troponin I < 0.0120 ng/mL (0.00-0.120) 07/04/18 02:20 Total Protein 7.6 G/DL (6.3-8.2) 07/03/18 20:10 Albumin 4.3 g/dL (3.5-5.0) 07/03/18 20:10 Globulin 3.3 gm/dL (2.2-3.9) 07/03/18 20:10 Albumin/Globulin Ratio 1.3 (1.0-2.1) 07/03/18 20:10 Triglycerides 113 mg/DL (0-149) 07/04/18 04:25 Cholesterol 199 mg/dL (0-199) 07/04/18 04:25 LDL Cholesterol Direct 115 mg/dL (0-129) 07/04/18 04:25 HDL Cholesterol 59 MG/DL (30-70) 07/04/18 04:25 TSH 3rd Generation 1.95 mIU/ML (0.46-4.68) 07/03/18 20:10 Prolactin 16.2 ng/mL (3.7-17.9) 07/04/18 04:25 Urine Color Yellow (YELLOW) 07/03/18 20:10 Urine Clarity Clear (Clear) 07/03/18 20:10 Urine pH 6.0 (5.0-8.0) 07/03/18 20:10 Ur Specific Downey 1.013 (1.003-1.030) 07/03/18 20:10 Urine Protein 30 mg/dL (NEGATIVE) 07/03/18 20:10 Urine Glucose (UA) Neg mg/dL (NEGATIVE) 07/03/18 20:10 Urine Ketones Negative mg/dL (NEGATIVE) 07/03/18 20:10 Urine Blood Small (NEGATIVE) 07/03/18 20:10 Urine Nitrate Negative (NEGATIVE) 07/03/18 20:10 Urine Bilirubin Negative (NEGATIVE) 07/03/18 20:10 Urine Urobilinogen 0.2-1.0 mg/dL (0.2-1.0) 07/03/18 20:10 Ur Leukocyte Esterase Neg Thad/uL (Negative) 07/03/18 20:10 Urine RBC (Auto) 9 /hpf (0-3) H 07/03/18 20:10 Urine Microscopic WBC 1 /hpf (0-5) 07/03/18 20:10 Urine Opiates Screen Negative (NEGATIVE) 07/04/18 15:58 Urine Methadone Screen Negative (NEGATIVE) 07/04/18 15:58 Ur Barbiturates Screen Negative (NEGATIVE) 07/04/18 15:58 Ur Phencyclidine Scrn Negative (NEGATIVE) 07/04/18 15:58 Ur Amphetamines Screen Negative (NEGATIVE) 07/04/18 15:58 U Benzodiazepines Scrn Negative (NEGATIVE) 07/04/18 15:58 U Oth Cocaine Metabols Negative (NEGATIVE) 07/04/18 15:58 U Cannabinoids Screen Negative (NEGATIVE) 07/04/18 15:58 Alcohol, Quantitative < 10 mg/dl (0-10) 07/04/18 12:38 - Hospital Course Hospital Course: 57 y/o M with a PMHx of SEB was admitted for evaluation and management of syncopal episode and new onset of Atrial Fibrillation. Patient was put on Lovenox 40mg, Cardizem 30 mg, Aspirin, Ibuprofen and acetaminophen. During his hospital stay patient didn't have any acute events. Patient to be discharged home on Eliquis 10 mg BID PO for 1 week then continue n Eliquis 5 mg PO BID and Nicotine Patches 14 mg/24h. Patient to follow up with Dr. Juan Drake MD for EPS. Assessment: 57 y/o M with a PMHx of SEB was admitted for evaluation and management of syncopal episode and new onset of Atrial Fibrillation. --CT Angio of chest: unremarkable PE protocol. --CTA Head and Neck: No evidence of occlusion or stenosis. No evidence of intracranial stenosis related to Mild R carotid plaque --Head CT: no acute intra-cranial abnormality. --TSH wnl, No anemia on CBC, no electrolyte imbalance. PLAN: >Syncope --New, tachycardic. --Likely cardiogenic due to A-Fib --Cardiology consult, Dr Crawford, Reccs appreciated. --CT Angio of chest: unremarkable PE protocol. --CTA Head and Neck: No evidence of occlusion or stenosis. No evidence of intracranial stenosis related to Mild R carotid plaque --Head CT: no acute intra-cranial abnormality. --TSH wnl, No anemia on CBC, no electrolyte imbalance. --3 Serum troponin are negative. --Echocardiogram; Mild concentric L vent. hypertrophy, EF 60-65%, L atrial fun ction normal. KL vent diastolic function couldn't be assessed due to A-fib. >New Onset Atrial Fibrillation --Discontinue Cardiazem. --EKG; A fib with rapid vent. response, Possible septal infarction and L axis deviation. --Echocardiogram; Mild concentric L vent. hypertrophy, EF 60-65%, L atrial function normal. KL vent diastolic function couldn't be assessed due to A-fib. --Cardiology consult, Dr Crawford. --CHA2DS?2-VASc Score: 0 --Eliquis 10 mg BID PO for 1 week then continue n Eliquis 5 mg PO BID. --Nicotine Patches 14 mg/24h. -- Patient to follow up with Dr. Juan Drake MD for EPS. Discharge Exam - Head Exam Head Exam: NORMAL INSPECTION - Eye Exam Eye Exam: EOMI, Normal appearance, PERRL Pupil Exam: NORMAL ACCOMODATION, PERRL - ENT Exam ENT Exam: Mucous Membranes Moist, Normal Exam - Neck Exam Neck exam: Full Rom - Respiratory Exam Respiratory Exam: Clear to PA & Lateral, NORMAL BREATHING PATTERN, UNREMARKABLE - Cardiovascular Exam Cardiovascular Exam: +S1, +S2 - GI/Abdominal Exam GI & Abdominal Exam: Normal Bowel Sounds, Unremarkable - Extremities Exam Extremities exam: full ROM, normal capillary refill - Back Exam Back exam: NORMAL INSPECTION - Neurological Exam Neurological exam: Alert, Oriented x3 - Psychiatric Exam Psychiatric exam: Normal Affect, Normal Mood - Skin Skin Exam: Dry, Intact, Normal Color, Warm Discharge Plan - Discharge Medications Prescriptions: Apixaban [Eliquis] 5 mg PO BID #60 tablet Nicotine 14 mg/24 hr [Nicoderm CQ] 1 each TD DAILY #14 patch - Follow Up Plan Condition: STABLE Disposition: HOME/ ROUTINE Instructions: Atrial Fibrillation (DC), Syncope (Fainting) (DC) Additional Instructions: appt with PMBrandie leep appt with Dr Jose Alejandro fierro Referrals: Juan Blount MD [Staff Provider] - Raul Beasley MD [Family Provider] - <Linda Carey - Last Filed: 07/05/18 17:23> Provider - Provider Date of Admission: 07/04/18 00:14 Attending physician: Olvin Starkey Consults: 07/04/18 00:15 Cardiology Consult Stat Comment: Consulting Provider: Marvin Crawford Consulting Physician: Marvin Crawford Reason for Consult: n 07/04/18 14:10 Neurology Consult Routine Comment: Consulting Provider: Braxton Thomas Consulting Physician: Braxton Thomas Reason for Consult: r/o seizure 07/04/18 14:17 Physician Consult Routine Comment: Consulting Provider: Juan Blount Consulting Physician: Juan Blount Reason for Consult: a fib. syncope Hospital Course - Lab Results Lab Results: Most Recent Lab Values WBC 11.3 K/uL (4.8-10.8) H 07/04/18 04:25 RBC 5.51 Mil/uL (4.40-5.90) 07/04/18 04:25 Hgb 15.4 g/dL (12.0-18.0) 07/04/18 04:25 Hct 47.7 % (35.0-51.0) 07/04/18 04:25 MCV 86.6 fl (80.0-94.0) 07/04/18 04:25 MCH 28.0 pg (27.0-31.0) 07/04/18 04:25 MCHC 32.4 g/dL (33.0-37.0) L 07/04/18 04:25 RDW 14.9 % (11.5-14.5) H 07/04/18 04:25 Plt Count 224 K/uL (130-400) 07/04/18 04:25 MPV 8.3 fl (7.2-11.7) 07/04/18 04:25 Neut % (Auto) 60.5 % (50.0-75.0) 07/04/18 04:25 Lymph % (Auto) 26.4 % (20.0-40.0) 07/04/18 04:25 Day % (Auto) 9.6 % (0.0-10.0) 07/04/18 04:25 Eos % (Auto) 2.7 % (0.0-4.0) 07/04/18 04:25 Baso % (Auto) 0.8 % (0.0-2.0) 07/04/18 04:25 Neut # (Auto) 6.8 K/uL (1.8-7.0) 07/04/18 04:25 Lymph # (Auto) 3.0 K/uL (1.0-4.3) 07/04/18 04:25 Day # (Auto) 1.1 K/uL (0.0-0.8) H 07/04/18 04:25 Eos # (Auto) 0.3 K/uL (0.0-0.7) 07/04/18 04:25 Baso # (Auto) 0.1 K/uL (0.0-0.2) 07/04/18 04:25 PT 10.6 Seconds (9.8-13.1) 07/03/18 20:10 INR 0.9 07/03/18 20:10 APTT 31.1 Seconds (25.6-37.1) 07/03/18 20:10 D-Dimer, Quantitative 585 ng/mlDDU (0-230) H 07/03/18 21:29 Sodium 133 mmol/l (132-148) 07/04/18 04:25 Potassium 4.2 MMOL/L (3.6-5.0) 07/04/18 04:25 Chloride 102 mmol/L (98-107) 07/04/18 04:25 Carbon Dioxide 23 mmol/L (22-30) 07/04/18 04:25 Anion Gap 12 (10-20) 07/04/18 04:25 BUN 13 mg/dl (9-20) 07/04/18 04:25 Creatinine 1.0 mg/dl (0.8-1.5) 07/04/18 04:25 Est GFR ( Amer) > 60 07/04/18 04:25 Est GFR (Non-Af Amer) > 60 07/04/18 04:25 POC Glucose (mg/dL) 108 mg/dL (65-110) 07/03/18 20:19 Random Glucose 110 mg/dL (75-110) 07/04/18 04:25 Hemoglobin A1c 5.9 % (4.2-6.5) 07/04/18 04:25 Calcium 8.7 mg/dL (8.4-10.2) 07/04/18 04:25 Total Bilirubin 0.5 mg/dl (0.2-1.3) 07/03/18 20:10 AST 43 U/L (17-59) 07/03/18 20:10 ALT 42 U/L (21-72) 07/03/18 20:10 Alkaline Phosphatase 106 U/L (38-126) 07/03/18 20:10 Total Creatine Kinase 710 U/L (55-170) H 07/04/18 04:25 Troponin I < 0.0120 ng/mL (0.00-0.120) 07/04/18 02:20 Total Protein 7.6 G/DL (6.3-8.2) 07/03/18 20:10 Albumin 4.3 g/dL (3.5-5.0) 07/03/18 20:10 Globulin 3.3 gm/dL (2.2-3.9) 07/03/18 20:10 Albumin/Globulin Ratio 1.3 (1.0-2.1) 07/03/18 20:10 Triglycerides 113 mg/DL (0-149) 07/04/18 04:25 Cholesterol 199 mg/dL (0-199) 07/04/18 04:25 LDL Cholesterol Direct 115 mg/dL (0-129) 07/04/18 04:25 HDL Cholesterol 59 MG/DL (30-70) 07/04/18 04:25 TSH 3rd Generation 1.95 mIU/ML (0.46-4.68) 07/03/18 20:10 Prolactin 16.2 ng/mL (3.7-17.9) 07/04/18 04:25 Urine Color Yellow (YELLOW) 07/03/18 20:10 Urine Clarity Clear (Clear) 07/03/18 20:10 Urine pH 6.0 (5.0-8.0) 07/03/18 20:10 Ur Specific Downey 1.013 (1.003-1.030) 07/03/18 20:10 Urine Protein 30 mg/dL (NEGATIVE) 07/03/18 20:10 Urine Glucose (UA) Neg mg/dL (NEGATIVE) 07/03/18 20:10 Urine Ketones Negative mg/dL (NEGATIVE) 07/03/18 20:10 Urine Blood Small (NEGATIVE) 07/03/18 20:10 Urine Nitrate Negative (NEGATIVE) 07/03/18 20:10 Urine Bilirubin Negative (NEGATIVE) 07/03/18 20:10 Urine Urobilinogen 0.2-1.0 mg/dL (0.2-1.0) 07/03/18 20:10 Ur Leukocyte Esterase Neg Thad/uL (Negative) 07/03/18 20:10 Urine RBC (Auto) 9 /hpf (0-3) H 07/03/18 20:10 Urine Microscopic WBC 1 /hpf (0-5) 07/03/18 20:10 Urine Opiates Screen Negative (NEGATIVE) 07/04/18 15:58 Urine Methadone Screen Negative (NEGATIVE) 07/04/18 15:58 Ur Barbiturates Screen Negative (NEGATIVE) 07/04/18 15:58 Ur Phencyclidine Scrn Negative (NEGATIVE) 07/04/18 15:58 Ur Amphetamines Screen Negative (NEGATIVE) 07/04/18 15:58 U Benzodiazepines Scrn Negative (NEGATIVE) 07/04/18 15:58 U Oth Cocaine Metabols Negative (NEGATIVE) 07/04/18 15:58 U Cannabinoids Screen Negative (NEGATIVE) 07/04/18 15:58 Alcohol, Quantitative < 10 mg/dl (0-10) 07/04/18 12:38 Attending/Attestation - Attestation I have personally seen and examined this patient.: Yes I have fully participated in the care of the patient.: Yes I have reviewed all pertinent clinical information, including history, physical exam and plan: Yes
--- NOTE | 2018-07-05 18:02 | PN ---
DATE: 07/05/2018 SUBJECTIVE: The patient is apparently very angry on the fact that he is being held from going home. He denies any dizziness or palpitation. PHYSICAL EXAMINATION: VITAL SIGNS: Blood pressure 153/82, heart rate 66, temperature 97.9, respirations 18. HEENT: Loss of the front incisor teeth. The patient had one bridge that he lost including one upper incisor. NECK: No JVD. CHEST: Clear. HEART: S1 and S2 regular. ABDOMEN: Soft. EXTREMITIES: No edema. LABORATORY DATA: Urine drug screen is negative. Two sets of troponins are negative. Brain MRI was performed, the report is still pending. Carotid ultrasound, no hemodynamically significant disease. Echocardiographic study revealed mild concentric LVH with normal ejection fraction, normal left atrial size. ASSESSMENT: 1. Atrial fibrillation, very likely new onset. 2. Syncopal episode versus seizures. 3. Systolic hypertension. RECOMMENDATIONS: Continue aspirin 81 mg once a day, therapeutic subcutaneous Lovenox at 80 mg twice a day. Hold Cardizem for now because of the patient's bradycardia. Follow up brain MRI. The patient is awaiting EP evaluation. However, if he refuses to wait, the patient can be discharged on Eliquis at 5 mg twice a day with followup with Dr. Juan Blount as an outpatient. Marvin Crawford MD
== END 2018-07-05 17:40 | disposition home or self-care (01) ==
LOC: H.ER 19:32 → INTOOBSV 07-04 00:14 → H.ERHOLD 07-04 00:14 → H.TEL 07-04 01:15
PROVIDERS: ADMIT Internal Medicine; ATTEND Internal Medicine
DX: I48.91 Unspecified atrial fibrillation (principal); W18.30XA Fall on same level, unspecified, initial encounter; Z79.01 Long term (current) use of anticoagulants; Y92.9 Unspecified place or not applicable; Y93.9 Activity, unspecified; Z80.42 Family history of malignant neoplasm of prostate; R55 Syncope and collapse; F17.200 Nicotine dependence, unspecified, uncomplicated; G47.33 Obstructive sleep apnea (adult) (pediatric); I10 Essential (primary) hypertension
CPT/HCPCS: 36415; 70450; 70496; 70498; 70553; 71045; 71275; 80048; 80053; 80061; 81003; 82550; 82948; 83036; 84146; 84443; 84484; 85025; 85378; 85610; 85730; 93005; 93306; 93880; 96361; 96374; 99285; A9579; G0378; G0480; J1650; J7030; Q9967